=== PATIENT | male | born 1940 | race Caucasian/White ===

== ENCOUNTER 2016-08-14 08:21 | Emergency (ER) | payer MEDICARE ==
[~2016-08-14] VITALS: Ht 185.4 cm; Wt 106.6 kg
[~2016-08-14 08:21] MED LIST: CEPH500C PO; HYDR-971 PO
[2016-08-14 09:19] VITALS: BP 168/88
--- NOTE | 2016-08-14 09:30 | PHYS DOC ---
Past Medical History Past Medical History: A-Fib, Cancer, Hypertension, Other Additional Past Medical Histor: PROSTATE CA Past Surgical History: Other Additional Past Surgical Histo: L KNEE LIGAMENT,PROSTATECTOMY Alcohol Use: None Drug Use: None Adult General Chief Complaint Chief Complaint: SUTURE/STAPLE REMOVAL [facility] Patient is a 76 year old male who presents with removal. 10 days ago he had a laceration over his right pinky and required's 5 stitches. He is requesting these be taken at this time. He denies any fevers chills nausea vomiting and he states he's doing well. Review of Systems Review of Systems Constitutional: Denies fever or chills [] Eyes: Denies change in visual acuity, redness, or eye pain [] HENT: Denies nasal congestion or sore throat [] Respiratory: Denies cough or shortness of breath [] Cardiovascular: No additional information not addressed in HPI [] GI: Denies abdominal pain, nausea, vomiting, bloody stools or diarrhea [] : Denies dysuria or hematuria [] Musculoskeletal: Denies back pain or joint pain [] Integument: Denies rash or skin lesions [] Neurologic: Denies headache, focal weakness or sensory changes [] Endocrine: Denies polyuria or polydipsia [] Allergies Allergies Allergies Coded Allergies Type Severity Reaction Last Updated Verified No Known Drug Allergies 08/04/16 No Physical Exam Physical Exam Constitutional: Well developed, well nourished, no acute distress, non-toxic appearance. [] HENT: Normocephalic, atraumatic, bilateral external ears normal, oropharynx moist, no oral exudates, nose normal. [] Eyes: PERRLA, EOMI, conjunctiva normal, no discharge. [] Neck: Normal range of motion, no tenderness, supple, no stridor. [] Cardiovascular:Heart rate regular rhythm, no murmur [] Lungs & Thorax: Bilateral breath sounds clear to auscultation [] Abdomen: Bowel sounds normal, soft, no tenderness, no masses, no pulsatile masses. [] Skin: Warm, dry, no erythema, no rash. 5 stitches in the right pinky that's well -healed. Back: No tenderness, no CVA tenderness. [] Extremities: No tenderness, no cyanosis, no clubbing, ROM intact, no edema. [] Neurologic: Alert and oriented X 3, normal motor function, normal sensory function, no focal deficits noted. [] Psychologic: Affect normal, judgement normal, mood normal. [] Current Patient Data Vital Signs Vital Signs Date Time Temp Pulse Resp B/P Pulse Ox O2 Delivery O2 Flow Rate FiO2 08/14/16 09:19 98 65 18 168/88 95 Room Air 98.0 EKG EKG [] Radiology/Procedures Radiology/Procedures [] Impressions: Suture removal Course & Med Decision Making Course & Med Decision Making Pertinent Labs and Imaging studies reviewed. (See chart for details) I reviewed his x-ray and his previous note. His tetanus was updated on his last visit 10 days ago. His site looks well-healed and removed the sutures. He is instructed to return ER if his wound dehiscence, he develops fevers chills worsening pain or other concerns. Dragon Disclaimer Dragon Disclaimer This electronic medical record was generated, in whole or in part, using a voice recognition dictation system. Departure Departure Impression: Primary Impression: Visit for suture removal Disposition: 01 HOME, SELF-CARE Referrals: Toshia MEDRANO MD (PCP) Patient Instructions: Suture Removal Additional Instructions: Nursing and data having her stitches removed. If your wound becomes infected, red, painful or other concerns please return back to emergency department. TEODORA MEYER MD Aug 14, 2016 09:30
== END 2016-08-14 09:42 | disposition home or self-care (01) ==
LOC: ER 08:21
DX: S61.216D Laceration without foreign body of right little finger without damage to nail, subsequent encounter (principal); I10 Essential (primary) hypertension; I48.91 Unspecified atrial fibrillation; W45.8XXD Other foreign body or object entering through skin, subsequent encounter; Y93.89 Activity, other specified; Y92.89 Other specified places as the place of occurrence of the external cause; Y99.8 Other external cause status
CPT/HCPCS: 99281

== ENCOUNTER → 2020-09-30 | Outpatient (CLI) | payer MEDICARE ==
[~2020-09-30] MED LIST changes: +HYDR-3164 PO; -HYDR-971 PO
--- NOTE | 2020-10-01 09:42 | KCIC ---
EXAM: XR LT WRIST 2 VIEWS, XR HAND_LEFT 2 VIEWS 09/30/2020 1:55 PM CLINICAL INDICATION: Lateral left wrist pain and swelling for 3 weeks COMPARISON: None TECHNIQUE: 2 views of the left wrist and 2 views of the left hand FINDINGS: Left wrist: There is radiocarpal joint space narrowing with [id number] articulation at the radiosca phoid joint with subchondral sclerosis, and milder joint space narrowing at the radiolunate joint. Th ere is remodeling of the distal radius at the scaphoid and lunate fossa. There is proximal migration of the capitate with severe low capitate joint space narrowing. There is mild degenerative joint dise ase of the distal radioulnar joint. Small amount of chondrocalcinosis seen in the wrist. Mild diffuse soft tissue swelling. Left hand: There are small osteophytes at the third MCP joint. No significant joint space narrowing i n the MCP or IP joints. Findings in the wrist as above. 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 Mild soft tissue swelling at the wrist. Electronically signed by: Michelle Abbasi MD (10/01/2020 9:39 AM) [id number]
--- NOTE | 2020-10-01 09:42 | KCIC ---
EXAM: XR LT WRIST 2 VIEWS, XR HAND_LEFT 2 VIEWS 09/30/2020 1:55 PM CLINICAL INDICATION: Lateral left wrist pain and swelling for 3 weeks COMPARISON: None TECHNIQUE: 2 views of the left wrist and 2 views of the left hand FINDINGS: Left wrist: There is radiocarpal joint space narrowing with [id number] articulation at the radiosca phoid joint with subchondral sclerosis, and milder joint space narrowing at the radiolunate joint. Th ere is remodeling of the distal radius at the scaphoid and lunate fossa. There is proximal migration of the capitate with severe low capitate joint space narrowing. There is mild degenerative joint dise ase of the distal radioulnar joint. Small amount of chondrocalcinosis seen in the wrist. Mild diffuse soft tissue swelling. Left hand: There are small osteophytes at the third MCP joint. No significant joint space narrowing i n the MCP or IP joints. Findings in the wrist as above. 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 Mild soft tissue swelling at the wrist. Electronically signed by: Michelle Abbasi MD (10/01/2020 9:39 AM) [id number]
== END ==
LOC: KCIC 13:48
PROVIDERS: ATTEND Family Medicine
DX: M19.032 Primary osteoarthritis, left wrist (principal); M25.742 Osteophyte, left hand; M79.89 Other specified soft tissue disorders
CPT/HCPCS: 73100; 73120